=== PATIENT | male | born 1955 | race African-American/Black ===

== ENCOUNTER 2017-03-28 12:10 | Inpatient (IN) | payer BC ==
[~2017-03-28] VITALS: Ht 185.4 cm; Wt 76.3 kg
[2017-03-28] MEDS ORDERED: VIMOVO 500-201 EAC1 PO (13:49)
[2017-03-28] MEDS ORDERED: ZOCOR40 MG PO (13:50)
[2017-03-28 13:51] LABS: HEMATOCRIT 45.1 % (38.0-50.0); HEMOGLOBIN 15.7 G/DL (12.5-16.6); MCH 33.2 PG (29.0-34.0); MCHC 34.8 G/DL (30.0-36.0); MCV 95.3 FL (86-99); PLATELET COUNT 203 K/uL (156-360); RBC DIS.WIDTH-CV 12.8 % (11.8-14.6); RBC DIS.WIDTH-SD 45.3 % (39-53); RED BLOOD COUNT 4.73 M/uL (4.00-5.50); WHITE BLOOD COUNT 7.6 K/uL (4.1-10.2)
[2017-03-28 14:00] LABS: CHLORIDE 106 mEq/L (99-109); POTASSIUM 4.2 mEq/L (3.7-5.4); SODIUM 140 mEq/L (136-147)
[2017-03-28 14:02] LABS: GLUCOSE 100 mg/dL (70-99)
[2017-03-28 14:06] LABS: CREATININE 0.8 mg/dL (0.6-1.3); GFR ESTIMATE (CALCULATED) > 59 mL/min/ (58.99-99999)
[2017-03-28 14:07] LABS: UREA NITROGEN (BUN) 13 mg/dL (9-23)
[2017-03-28 15:22] LABS: INTER. NORMALIZED RATIO 1.2
[2017-03-28 15:24] LABS: PTT 34.4 SEC (25-37)
[2017-03-28 16:29] LABS: TROP-I INTERPRETATION NEGATIVE; TROPONIN-I < 0.01 ng/mL (0.0-0.30)
[2017-03-28] MEDS ORDERED: UNISOM SLEEP AI25 MG PO (18:14)
[2017-03-28 23:19] VITALS: BP 150/82
[2017-03-29] VITALS (7 sets, daily range): BP systolic 132–185; BP diastolic 67–92
[2017-03-29 11:24] LABS: HDL CHOLESTEROL 30 MG/DL (Desirable>=40); LDL CHOLESTEROL 105 mg/dL (Desirable<100); NON-HDL CHOLESTEROL 154 mg/dL (Desirable<160); TOTAL CHOLESTEROL 184 mg/dL (Desirable<200); TRIGLYCERIDES 244 MG/DL (Normal: <150)
[2017-03-29 12:52] LABS: HEMOGLOBIN A1c (GLYCOHEMOGLOB) 5.6 % (Below 5.7)
[2017-03-30 04:02] VITALS: BP 146/78
[2017-03-30 08:30] VITALS: BP 134/92
[2017-03-30 11:37] VITALS: BP 123/77
[2017-03-30 16:17] VITALS: BP 144/76
[2017-03-30 19:30] VITALS: BP 146/81
[2017-03-30 23:50] VITALS: BP 155/83
[2017-03-31 04:22] VITALS: BP 119/72
[2017-03-31 06:54] VITALS: BP 127/61
[2017-03-31] MEDS ORDERED: ZESTORETIC 20-1 EAC2 PO (15:11)
[2017-03-31] MEDS ORDERED: PROTONIX40 MG PO ×2 (15:12→15:21)
[2017-03-31] MEDS ORDERED: ASPIRIN325 MG PO (15:12)
[2017-03-31] MEDS ORDERED: NAPROSYN500 MG PO (15:20)
== END 2017-03-31 14:17 | DRG 65 ==
LOC: EME 12:10 → 5SOUTH 17:47 → EDOF 17:47 → ENRESERV 18:53 → 5SOUTH 21:56 → ENPENDDIS 03-31 11:08 → 5SOUTH 03-31 14:17
PROVIDERS: Emergency Medicine
DX: I63.9 Cerebral infarction, unspecified (principal); G81.94 Hemiplegia, unspecified affecting left nondominant side; F17.200 Nicotine dependence, unspecified, uncomplicated; J44.9 Chronic obstructive pulmonary disease, unspecified; I10 Essential (primary) hypertension; M19.90 Unspecified osteoarthritis, unspecified site; Z66 Do not resuscitate
CPT/HCPCS: 70450; 70496; 70498; 70551; 71045; 80048; 80061; 83036; 84484; 85027; 85610; 85730; 93005; 97530 GP; 99281; 99285

== ENCOUNTER 2017-03-31 14:23 | Inpatient (IN) | payer BC ==
[~2017-03-31] VITALS: Ht 188 cm; Wt 77.0 kg
[~2017-03-31 14:23] MED LIST: UNISOM SLEEP AI25 MG PO; VIMOVO 500-201 EAC1 PO; ZOCOR40 MG PO
[2017-03-31 14:44] VITALS: BP 130/81
[2017-03-31] MEDS ORDERED: ZESTORETIC 20-1 EAC2 PO (15:11)
[2017-03-31] MEDS ORDERED: PROTONIX40 MG PO ×2 (15:12→15:21)
[2017-03-31] MEDS ORDERED: ASPIRIN325 MG PO (15:12)
[2017-03-31] MEDS ORDERED: NAPROSYN500 MG PO (15:20)
[2017-03-31 15:44] LABS: HEMATOCRIT 42.8 % (38.0-50.0); HEMOGLOBIN 14.7 G/DL (12.5-16.6); MCH 32.8 PG (29.0-34.0); MCHC 34.3 G/DL (30.0-36.0); MCV 95.5 FL (86-99); PLATELET COUNT 181 K/uL (156-360); RBC DIS.WIDTH-CV 12.8 % (11.8-14.6); RBC DIS.WIDTH-SD 45.1 % (39-53); RED BLOOD COUNT 4.48 M/uL (4.00-5.50); WHITE BLOOD COUNT 5.1 K/uL (4.1-10.2)
[2017-03-31 16:07] LABS: ALBUMIN 4.6 G/DL (3.2-4.8); ALKALINE PHOSPHATASE 55 IU/L (3-129); ALT (GPT) 21 IU/L (3-49); AST (GOT) 22 IU/L (2-34); CHLORIDE 100 MEQ/L (99-109); CREATININE 0.9 MG/DL (0.6-1.3); GFR ESTIMATE (CALCULATED) > 59 mL/min/ (58.99-99999); GLUCOSE 120 mg/dL (70-99); POTASSIUM 3.8 MEQ/L (3.7-5.4); SODIUM 132 MEQ/L (136-147); TOTAL BILIRUBIN 0.6 MG/DL (0.0-1.0); TOTAL PROTEIN 7.5 G/DL (6.4-8.3); UREA NITROGEN (BUN) 20 mg/dL (9-23)
[2017-03-31 21:54] LABS: APPEARANCE CLEAR ((CLEAR)); BILIRUBIN NEGATIVE; BLOOD NEGATIVE; COLOR YELLOW ((YELLOW)); GLUCOSE (STRIP) NEGATIVE; KETONES NEGATIVE; LEUKOCYTES NEGATIVE; NITRITE NEGATIVE; PROTEIN (STRIP) NEGATIVE; SPECIFIC GRAVITY 1.018 (1.000-1.030); UCUL ADDED? NO; UROBILINOGEN 0.2 MG/DL (0.2-1.0)
[2017-04-01 06:26] VITALS: BP 131/61
[2017-04-01 15:00] VITALS: BP 143/86
[2017-04-02 05:55] VITALS: BP 114/63
[2017-04-02 15:56] VITALS: BP 139/67
[2017-04-02 22:54] VITALS: BP 123/72
[2017-04-03 04:52] VITALS: BP 120/61
[2017-04-03 07:56] LABS: HEMATOCRIT 43.4 % (38.0-50.0); HEMOGLOBIN 14.6 G/DL (12.5-16.6); MCHC 33.6 G/DL (30.0-36.0); PLATELET COUNT 188 K/uL (156-360); RBC DIS.WIDTH-CV 12.7 % (11.8-14.6); RED BLOOD COUNT 4.43 M/uL (4.00-5.50); WHITE BLOOD COUNT 5.1 K/uL (4.1-10.2)
[2017-04-03 08:21] LABS: ALBUMIN 4.7 G/DL (3.2-4.8); ALKALINE PHOSPHATASE 55 IU/L (3-129); ALT (GPT) 22 IU/L (3-49); AST (GOT) 27 IU/L (2-34); CHLORIDE 96 MEQ/L (99-109); GFR ESTIMATE (CALCULATED) > 59 mL/min/ (58.99-99999); GLUCOSE 106 mg/dL (70-99); POTASSIUM 4.1 MEQ/L (3.7-5.4); SODIUM 133 MEQ/L (136-147); TOTAL PROTEIN 7.6 G/DL (6.4-8.3); UREA NITROGEN (BUN) 25 mg/dL (9-23)
[2017-04-03 08:23] LABS: TOTAL BILIRUBIN 0.9 MG/DL (0.0-1.0)
[2017-04-03 15:11] VITALS: BP 114/64
[2017-04-04 06:14] VITALS: BP 130/64
[2017-04-04 15:49] VITALS: BP 116/70
[2017-04-05 05:11] VITALS: BP 129/69
[2017-04-05 15:33] VITALS: BP 112/65
[2017-04-06 05:00] VITALS: BP 117/63
[2017-04-06 15:21] VITALS: BP 108/66
[2017-04-07 05:40] VITALS: BP 101/56
[2017-04-07 15:16] VITALS: BP 106/54
[2017-04-08 05:53] VITALS: BP 133/65
[2017-04-08 15:04] VITALS: BP 120/60
[2017-04-09 04:30] VITALS: BP 116/66
[2017-04-09 15:38] VITALS: BP 98/63
[2017-04-10 06:35] VITALS: BP 109/68
[2017-04-10 14:56] VITALS: BP 108/57
[2017-04-11 05:54] VITALS: BP 109/73
[2017-04-11 15:03] VITALS: BP 86/53
[2017-04-11 17:21] VITALS: BP 95/60
[2017-04-12 07:05] VITALS: BP 100/65
[2017-04-12 09:15] VITALS: BP 120/58
[2017-04-12 15:01] VITALS: BP 123/78
[2017-04-13 06:18] VITALS: BP 115/61
[2017-04-13 07:04] VITALS: BP 130/69
[2017-04-13] MEDS ORDERED: ZOCOR40 MG PO (09:11)
[2017-04-13] MEDS ORDERED: PROTONIX40 MG PO (09:11)
[2017-04-13] MEDS ORDERED: SENNA PLUS TAB1 EACH PO (09:11)
[2017-04-13] MEDS ORDERED: LISINOPRIL10 MG PO (09:11)
[2017-04-13] MEDS ORDERED: ASPIRIN325 MG PO (09:11)
== END 2017-04-13 13:20 | DRG 57 ==
LOC: 3WEST 14:23 → ENPENDDIS 04-13 → 3WEST 04-13 13:20
PROVIDERS: Physical Medicine & Rehabilitation
PROC: F07M0ZZ Range of Motion and Joint Mobility Treatment of Musculoskeletal System - Whole Body (ICD-10-PCS; principal; 2017-03-31)
PROC: 0HBNXZZ Excision of Left Foot Skin, External Approach (ICD-10-PCS; 2017-04-11)
DX: I69.354 Hemiplegia and hemiparesis following cerebral infarction affecting left non-dominant side (principal); E87.1 Hypo-osmolality and hyponatremia; Z91.81 History of falling; R26.9 Unspecified abnormalities of gait and mobility; L84 Corns and callosities; J44.9 Chronic obstructive pulmonary disease, unspecified; I10 Essential (primary) hypertension; K59.00 Constipation, unspecified; R42 Dizziness and giddiness; Z87.891 Personal history of nicotine dependence
CPT/HCPCS: 80053; 81003; 85027; 92523 GN; 92610 GN; 97110 GO; 97112 GO; 97530 GP; J1650